=== PATIENT | male | born 1950 | race Hispanic/Latino ===

== ENCOUNTER 2018-04-27 08:30 | Day surgery (SDC) | payer MEDICARE ==
[2018-04-25 14:25] VITALS: BMI 38.7
[2018-04-27 09:19] LABS: BLOOD UREA NITROGEN 14 mg/dL (7-21); CALCIUM 9.4 mg/dL (8.4-10.5); GFR AFRICAN-AMERICAN > 60; GFR NON-AFRICAN AMERICAN > 60
[2018-04-27 09:21] LABS: BASO # 0.04 K/mm3 (0.0-2.0); BASO % 0.4 % (0.0-3.0); EOS # 0.2 (0.0-0.7); EOS % 1.9 % (1.5-5.0); GRAN # 4.45 (1.4-6.5); GRAN % 50.1 % (50.0-68.0); HEMOGLOBIN 16.8 g/dL (14.0-18.0); LYMPH # 3.6 (1.2-3.4); LYMPH % 40.4 % (22.0-35.0); MEAN CELL VOLUME 87.9 fl (80.0-105.0); MEAN CORPUSCULAR HEMOGLOBIN 31.3 pg (25.0-35.0); MEAN CORPUSCULAR HGB CONC 35.7 g/dl (31.0-37.0); MEAN PLATELET VOLUME 8.9 fl (7.0-11.0); MONO # 0.6 (0.1-0.6); MONO % 7.2 % (1.0-6.0); RBC 5.36 10^6/uL (3.5-6.1); RED CELL DISTRIBUTION WIDTH 13.2 % (11.5-14.5); WHITE BLOOD COUNT 8.9 10^3/ul (4.5-11.0)
[2018-04-27 09:23] VITALS: O2SAT 94
[2018-04-27 09:37] LABS: INR 1.24 (0.93-1.08); PARTIAL THROMBOPLASTIN TIME 35.6 Seconds (25.1-36.5); PROTHROMBIN TIME 14.3 SECONDS (9.4-12.5)
[2018-04-27] MEDS ORDERED: Lidocaine 2% Inj (20ml) ONE (10:45)
[2018-04-27] MEDS ORDERED: Iodixanol 320 MG/ML 200 ML BOTTLE IV ONE (10:46)
[2018-04-27] MEDS ORDERED: Midazolam 2 MG/2 ML VIAL ONE ×2 (10:46→11:09)
[2018-04-27] MEDS ORDERED: Sodium Chloride 0.9% 1,000 ML IV SCH (12:00)
[2018-04-27 12:49] VITALS: RESP 18
--- NOTE | 2018-04-27 14:54 | CARDCATH ---
PROCEDURE DATE: 04/27/2018 PROCEDURES: 1. Selective left and right coronary angiography. 2. Left ventriculography. 3. Percutaneous coronary intervention of proximal left anterior descending with drug-eluting stent. 4. Right femoral arteriography. 5. Angio-Seal deployment. HISTORY: This is a 67-year-old male with known coronary artery disease, status post previous PCI of his LAD, who has had worsening exertional dyspnea and abnormal stress test. Repeat catheterization was advised. INDICATIONS: As above. FINDINGS: HEMODYNAMICS: The aortic pressure was 130/70 with left ventricular pressure of 130/16. CORONARY ANATOMY: 1. The left main stem was short and normal. 2. Left anterior descending artery had an 80% proximal stenosis just prior to the previously placed stents in the proximal segment of the vessel. The stent itself had minimal restenosis. Beyond the stent, there was a tubular area of 40% narrowing. Mild diffuse irregularities are noted distally. The diagonal branches were moderate in size and free of disease. 3. The left circumflex artery gave rise to two moderate-sized obtuse marginal branches which had minimal disease. 4. The right coronary artery was large and dominant. This had evidence of mild diffuse irregularities throughout its mid segment. The distal vessels were free of disease. LEFT VENTRICULOGRAPHY: A hand injection was performed in the left ventricle revealing normal wall motion with an ejection fraction of 65%. There was no aortic valve gradient noted on catheter pullback. Mitral regurgitation was not assessed. CORONARY INTERVENTION: Attempted PCI of the proximal LAD was then performed. A 3.5 EBU-guide catheter was utilized. 5000 units of intravenous heparin was administered. The ACT was 295 seconds during the procedure. The lesion in the LAD was successfully crossed with the use of a [place] wire. Following this, preliminary inflations were performed with a 2.5 x 8 mm balloon to 12 atmospheres for 30 seconds. Following this, the balloon was removed and a 2.75 x 12 mm Resolute [place] drug-eluting stent was advanced and positioned in the proximal LAD avoiding the ostial segment and origin of circumflex artery. The stent overlapped to some degree into the previously placed stent. This is inflated for 45 seconds to 12 atmospheres. Following this, the balloon was advanced into the overlapped segment and again inflated for 30 seconds for up to 14 atmospheres. There is 0% residual stenosis noted at the site. MELLO grade 3 flow was present before and after the intervention. RIGHT FEMORAL ARTERIOGRAPHY: A right femoral arteriogram was performed in the MCKAY projection. This revealed no evidence of significant disease and appropriate level of arterial puncture. The puncture site was then closed with deployment of an Angio-Seal device. CONCLUSIONS: 1. Severe proximal LAD disease. 2. Patent LAD stent. 3. Moderate mid LAD disease. 4. Normal LV function. 5. Successful PCI of proximal LAD with drug-eluting stent as described above. RECOMMENDATIONS: Aspirin and Plavix therapy will be continued for at least one year. Aggressive risk factor control was advised. Medical therapy will be continued. Silvio Chaney MD cc: Arlene Carver MD MTDD
[2018-04-27 17:43] VITALS: BP 138/93; PULSE 68; TEMP 98.9
--- NOTE | 2018-04-27 18:21 | CARD ---
APPROVED REPORT EKG Measurement Heart [id number] MT [id number] <Conclusion> Normal sinus rhythm Normal ECG
[2018-04-28] MEDS ORDERED: Metoprolol Succinate 50 mg XL Tab PO SCH (08:00)
== END 2018-04-27 19:05 | disposition home or self-care (01) ==
LOC: CATH 08:30 → 2RSO 12:15 → CATH 19:05
PROVIDERS: ATTEND Internal Medicine Cardiovascular Disease
DX: I25.119 Atherosclerotic heart disease of native coronary artery with unspecified angina pectoris (principal); I10 Essential (primary) hypertension; R94.39 Abnormal result of other cardiovascular function study; R06.00 Dyspnea, unspecified; Z95.5 Presence of coronary angioplasty implant and graft
CPT/HCPCS: 36415; 80048; 85025; 85175; 85610; 85730; 86850; 86900; 93005; 93458; 99152; 99153; C1725; C1760; C1769 ×2; C1874; C1887; C2629; C9600; J1644 ×2; J2250; J3010; J7030; J7040; Q9966